=== PATIENT | male | born 1950 ===

== ENCOUNTER 2017-04-06 17:23 | Outpatient (CLI) | payer OTHER ==
[~2017-04-06] VITALS: Ht 152.4 cm; Wt 81.2 kg
== END 2017-04-06 18:00 | disposition home or self-care (01) ==
LOC: PPHC 17:23
DX: M25.562 Pain in left knee (principal); Z00.8 Encounter for other general examination

== ENCOUNTER → 2017-05-10 07:12 | Outpatient (CLI) | payer OTHER | END | disposition home or self-care (01) | LOC: LAB 07:12 | DX: Z00.00 Encounter for general adult medical examination without abnormal findings (principal) ==

== ENCOUNTER 2021-06-14 07:14 | Outpatient (CLI) | payer OTHER | END 2021-06-14 07:45 | disposition home or self-care (01) | LOC: LAB 07:14 | PROVIDERS: ATTEND Ophthalmology | DX: H25.011 Cortical age-related cataract, right eye (principal); D68.8 Other specified coagulation defects; Z98.41 Cataract extraction status, right eye ==

== ENCOUNTER 2021-06-16 13:22 | Outpatient (CLI) | payer OTHER | END 2021-06-16 15:01 | disposition home or self-care (01) | LOC: EKG 13:22 → LAB 13:22 → EKG 15:01 | PROVIDERS: ATTEND Ophthalmology | DX: H25.011 Cortical age-related cataract, right eye (principal); Z98.41 Cataract extraction status, right eye ==